=== PATIENT | female | born 1980 | race Two or more races ===

== ENCOUNTER 2019-06-11 07:54 | Emergency (ER) | payer BC ==
[~2019-06-11] VITALS: Ht 157.5 cm; Wt 86.2 kg
[2019-06-11] MEDS ORDERED: NITROGLYCERIN SUBLINGUAL 0.4 MG BOTTLE OF 25. SL PRN (08:00)
[2019-06-11 08:27] LABS: BASO % 0 % (0-3); EOS # 0.1 x10^3/uL (0.0-0.7); EOS % 1 % (0-3); HEMATOCRIT 39.8 % (36.0-47.0); HEMOGLOBIN 13.4 g/dL (12.0-15.5); LYMPH # 2.4 x10^3/uL (1.0-4.8); LYMPH % 22 % (24-48); MEAN CORPUSCULAR HEMOGLOBIN 31 pg (25-35); MEAN CORPUSCULAR HGB CONC 34 g/dL (31-37); MEAN CORPUSCULAR VOLUME 91 fL (79-100); MONO # 0.8 x10^3/uL (0.0-1.1); MONO % 7 % (0-9); NEUT # 7.7 x10^3/uL (1.8-7.7); NEUT % 70 % (31-73); PLATELET COUNT 374 x10^3/uL (140-400); RED BLOOD COUNT 4.37 x10^6/uL (3.50-5.40); RED CELL DISTRIBUTION WIDTH 13.5 % (11.5-14.5); WHITE BLOOD COUNT 10.9 x10^3/uL (4.0-11.0)
[2019-06-11 08:29] LABS: BILIRUBIN,URINE NEGATIVE (NEG); CLARITY,URINE CLEAR; COLOR,URINE YELLOW; NITRITE,URINE NEGATIVE (NEG); PROTEIN,URINE NEGATIVE (NEG-TRACE); UROBILINOGEN,URINE 0.2 mg/dL (0.2 mg/dL)
[2019-06-11] MEDS ORDERED: ASPIRIN CHEWABLE 81 MG TABLET. PO ONE (08:30)
--- NOTE | 2019-06-11 08:30 | PHYS DOC ---
Past Medical History Past Medical History: Anxiety Past Surgical History: Tubal ligation Alcohol Use: Occasionally Drug Use: Marijuana Adult General Chief Complaint Chief Complaint: CHEST PAIN HPI HPI 39-year-old female presents to the emergency department with complaints of chest pain, sharp, pressure like sensation appreciated to the chest, reproducible. She states has been ongoing however more intense today. She states movements as well as big breaths make this worse. She denies any cough, nausea, vomiting, diap horesis. Patient has no history of coronary artery disease, she does smoke marijuana occasionally. Review of Systems Review of Systems Constitutional: Denies fever or chills [] Eyes: Denies change in visual acuity, redness, or eye pain [] HENT: Denies nasal congestion or sore throat [] Respiratory: Denies cough, + sob Cardiovascular: No additional information not addressed in HPI [] GI: Denies abdominal pain, nausea, vomiting, bloody stools or diarrhea [] Musculoskeletal: Denies back pain or joint pain [] Integument: Denies rash or skin lesions [] Neurologic: Denies headache, focal weakness or sensory changes [] All other systems were reviewed and found to be within normal limits, except as documented in this note. Current Medications Current Medications Current Medications Medications (Trade) Dose Ordered Sig/Martín Start Time Stop Time Status Last Admin Dose Admin Aspirin (Children'S Aspirin) 324 mg 1X ONCE 06/11/19 08:30 06/11/19 08:31 DC 06/11/19 08:28 324 MG Info (CONTRAST GIVEN -- Rx MONITORING) 1 each PRN DAILY PRN 06/11/19 09:45 06/13/19 09:44 Iohexol (Omnipaque 350 Mg/ml) 100 ml 1X ONCE 06/11/19 10:00 06/11/19 10:01 DC 06/11/19 10:00 100 ML Ketorolac Tromethamine (Toradol 30mg Vial) 30 mg 1X ONCE 06/11/19 09:00 06/11/19 09:01 DC 06/11/19 08:41 30 MG Nitroglycerin (Nitrostat) 0.4 mg PRN Q5MIN PRN 06/11/19 08:00 06/12/19 07:59 06/11/19 08:30 0.4 MG Allergies Allergies Allergies Coded Allergies Type Severity Reaction Last Updated Verified No Known Drug Allergies 06/11/19 No Physical Exam Physical Exam Constitutional: Well developed, well nourished, no acute distress, non-toxic appearance. [] HENT: Normocephalic, atraumatic, bilateral external ears normal, oropharynx moist, no oral exudates, nose normal. [] Eyes: PERRLA, EOMI, conjunctiva normal, no discharge. [] Cardiovascular:Heart rate regular rhythm, no murmur [] Lungs & Thorax: Bilateral breath sounds clear to auscultation [] Abdomen: Bowel sounds normal, soft, no tenderness, no masses, no pulsatile masses. [] Skin: Warm, dry, no erythema, no rash. [] Extremities: No tenderness, no edema. [] Neurologic: Alert and oriented X 3, no focal deficits noted. [] Psychologic: Affect normal, judgement normal, mood normal. [] Current Patient Data Vital Signs Vital Signs Date Time Temp Pulse Resp B/P (MAP) Pulse Ox O2 Delivery O2 Flow Rate FiO2 06/11/19 09:55 90 132/72 (92) 06/11/19 09:21 97 Room Air 06/11/19 08:37 16 06/11/19 07:56 98.2 98.2 Lab Values Laboratory Tests Test 06/11/19 08:11 06/11/19 08:19 White Blood Count 10.9 x10^3/uL (4.0-11.0) Red Blood Count 4.37 x10^6/uL (3.50-5.40) Hemoglobin 13.4 g/dL (12.0-15.5) Hematocrit 39.8 % (36.0-47.0) Mean Corpuscular Volume 91 fL (79-100) Mean Corpuscular Hemoglobin 31 pg (25-35) Mean Corpuscular Hemoglobin Concent 34 g/dL (31-37) Red Cell Distribution Width 13.5 % (11.5-14.5) Platelet Count 374 x10^3/uL (140-400) Neutrophils (%) (Auto) 70 % (31-73) Lymphocytes (%) (Auto) 22 % (24-48) L Monocytes (%) (Auto) 7 % (0-9) Eosinophils (%) (Auto) 1 % (0-3) Basophils (%) (Auto) 0 % (0-3) Neutrophils # (Auto) 7.7 x10^3/uL (1.8-7.7) Lymphocytes # (Auto) 2.4 x10^3/uL (1.0-4.8) Monocytes # (Auto) 0.8 x10^3/uL (0.0-1.1) Eosinophils # (Auto) 0.1 x10^3/uL (0.0-0.7) Basophils # (Auto) 0.0 x10^3/uL (0.0-0.2) D-Dimer (Linda) 0.92 ug/mlFEU (0.00-0.50) H Sodium Level 143 mmol/L (136-145) Potassium Level 4.0 mmol/L (3.5-5.1) Chloride Level 107 mmol/L (98-107) Carbon Dioxide Level 24 mmol/L (21-32) Anion Gap 12 (6-14) Blood Urea Nitrogen 12 mg/dL (7-20) Creatinine 0.7 mg/dL (0.6-1.0) Estimated GFR (Cockcroft-Gault) 92.2 BUN/Creatinine Ratio 17 (6-20) Glucose Level 103 mg/dL (70-99) H Calcium Level 8.9 mg/dL (8.5-10.1) Magnesium Level 2.0 mg/dL (1.8-2.4) Total Bilirubin 0.2 mg/dL (0.2-1.0) Aspartate Amino Transferase (AST) 15 U/L (15-37) Alanine Aminotransferase (ALT) 22 U/L (14-59) Alkaline Phosphatase 70 U/L (46-116) Troponin I Quantitative < 0.017 ng/mL (0.000-0.055) Total Protein 7.9 g/dL (6.4-8.2) Albumin 3.6 g/dL (3.4-5.0) Albumin/Globulin Ratio 0.8 (1.0-1.7) L Lipase 115 U/L (73-393) Urine Collection Type Unknown Urine Color Yellow Urine Clarity Clear Urine pH 7.0 Urine Specific [place] 1.015 Urine Protein Negative mg/dL (NEG-TRACE) Urine Glucose (UA) Negative mg/dL (NEG) Urine Ketones (Stick) Negative mg/dL (NEG) Urine Blood Negative (NEG) Urine Nitrite Negative (NEG) Urine Bilirubin Negative (NEG) Urine Urobilinogen Dipstick 0.2 mg/dL (0.2 mg/dL) Urine Leukocyte Esterase Negative (NEG) Urine RBC 0 /HPF (0-2) Urine WBC Occ /HPF (0-4) Urine Squamous Epithelial Cells Many /LPF Urine Bacteria Moderate /HPF (0-FEW) Urine Mucus Slight /LPF Laboratory Tests 06/11/19 08:11 Laboratory Tests 06/11/19 08:11 EKG EKG EKG reveals sinus rhythm, heart rate 93, no evidence of acute ST elevation MA appreciated.[] Interpretation Time: Interpretation time 0 817 Radiology/Procedures Radiology/Procedures [facility] [address] [place] [address] IMAGING REPORT Signed PATIENT: TORO CLEVELAND ACCOUNT: [id number] : 1980 LOCATION: ER AGE: 39 SEX: F EXAM STATUS: REG ER ORD. PHYSICIAN: ADALID HILL MD REASON: chest pain X1 week. hx of bronchitis PROCEDURE: PORTABLE CHEST 1V PORTABLE CHEST 1V History: Chest pain for one week, history of bronchitis Comparison: None. Findings: Single view of the chest is submitted. There is no lobar infiltrate, pleural fluid, pneumothorax. Heart size is within normal limits. There is minimal linear opacity at the left lung base likely mild atelectasis. Impression: 1. There is mild likely atelectasis of the left lung base. Electronically signed by: Donnie Ellis MD (06/11/2019 8:38 AM) [facility] DICTATED and SIGNED BY: DONNIE ELLIS MD DATE: 06/11/19 0838 [] [facility] [address] [place], [place] [id number] IMAGING REPORT Signed PATIENT: TORO CLEVELAND ACCOUNT: [id number] : 1980 LOCATION: ER AGE: 39 SEX: F EXAM STATUS: REG ER ORD. PHYSICIAN: ADALID HILL MD REASON: elevated ddimer, chest tightness/SOB PROCEDURE: CT ANGIOGRAPHY CHEST Chest CTA History: Elevated d-dimer, shortness of breath, chest tightness Technique: After bolus of intravenous contrast, CT imaging was performed of the chest. Multiplanar reconstruction images to include MIP reconstruction images are submitted. Exposure: One or more of the following individualized dose reduction techniques were utilized for this examination: 1. Automated exposure control 2. Adjustment of the mA and/or kV according to patient size 3. Use of iterative reconstruction technique. Comparison: None Findings: Contrast bolus in the pulmonary arteries is suboptimal, no pulmonary embolism identified of the main pulmonary arteries. However small emboli of the left lower lobe best seen coronal image 41 and of the left upper lobe as seen on coronal image 39 are difficult to entirely exclude. There is also some relative decreased contrast opacification of the right upper lobe branches proximally although probably related to artifact created by adjacent contrast bolus. There is no lobar infiltrate, pleural or pericardial effusion, pneumothorax. Minimal lingular density is likely atelectasis. Major airways are patent. There is probable hepatic steatosis. There is small nonspecific left adrenal nodule about 0.6 cm. Thoracic aortic caliber is within normal limits without intraluminal flap. Impression: 1. Exam is limited as stated, no central pulmonary embolism identified, difficult to exclude small more peripheral emboli as stated. 2. There is small nonspecific left adrenal nodule. Findings discussed with ADALID HILL at 06/11/2019 10:15 AM. FOR INTERNAL CODING PURPOSES RESULT CODE: (C) Course & Med Decision Making Course & Med Decision Making Pertinent Labs and Imaging studies reviewed. (See chart for details) [] 39-year-old female presents to the emergency department with complaints of chest pain, sharp, pressure like sensation appreciated to the chest, reproducible. She states has been ongoing however more intense today. She states movements as well as big breaths make this worse. She denies any cough, nausea, vomiting, diaphoresis. Patient has no history of coronary artery disease, she does smoke marijuana occasionally. labs/imaging reviewed - ASA 324mg po/Toradol 30mg IV EKG reviewed CXR with mild atelectasis no acute consolidation Trop negative x 1 set Ddimer elevated - CTA show no large burden PE however cannot rule out peripheral Given findings will start xarelto starter pack and continue DC home and follow up as outpatient with PCP in [address] findings with patient/family at bedside Floyd Disclaimer Floyd Disclaimer This electronic medical record was generated, in whole or in part, using a voice recognition dictation system. Departure Departure Impression: Primary Impression: Chest pain Additional Impression: Pulmonary emboli Disposition: HOME, SELF-CARE Condition: STABLE Referrals: UNKNOWN PCP NAME (PCP) Patient Instructions: Chest Pain (Nonspecific), Pulmonary Embolus Additional Instructions: Recommend follow up with PCP 3 - 5 days Return to the ER with worsening symptoms, intractable pain, fever, altered mental status Tylenol as needed for pain Xarelto rx provided for blood thinning medication Tramadol as needed prn Scripts Tramadol Hcl (TRAMADOL HCL) 50 Mg Tablet 50 MG PO Q6HRS PRN for PAIN for 5 Days, #20 TAB Prov: ADALID HILL MD 06/11/19 Rivaroxaban (XARELTO) 20 Mg Tablet 1 TAB PO DAILY for 30 Days, #30 TAB 0 Refills with food Prov: ADALID HILL MD 06/11/19 Rivaroxaban (XARELTO) 15 Mg Tablet 1 TAB PO BID for 21 Days, #42 TAB 0 Refills Prov: ADALID HILL MD 06/11/19 Problem Qualifiers Primary Impression: Chest pain Chest pain type: intercostal pain Qualified Codes: R07.82 - Intercostal pain Additional Impression: Pulmonary emboli Pulmonary embolism type: unspecified Chronicity: unspecified Acute cor pulmonale presence: without acute cor pulmonale Qualified Codes: I26.99 - Other pulmonary embolism without acute cor pulmonale ADALID HILL MD Jun 11, 2019 08:30
[2019-06-11 08:37] LABS: RBC,URINE 0 /HPF (0-2); SQUAMOUS EPITHELIAL CELL,UR MANY /LPF; WBC,URINE OCC /HPF (0-4)
[2019-06-11 08:38] LABS: BACTERIA,URINE MODERATE /HPF (0-FEW)
--- NOTE | 2019-06-11 08:41 | RAD ---
PORTABLE CHEST 1V History: Chest pain for one week, history of bronchitis Comparison: None. Findings: Single view of the chest is submitted. There is no lobar infiltrate, pleural fluid, pneumothorax. Heart size is within normal limits. There is minimal linear opacity at the left lung base likely mild atelectasis. Impression: 1. There is mild likely atelectasis of the left lung base. Electronically signed by: Steve Pal MD (06/11/2019 8:38 AM) [facility]
[2019-06-11 08:45] LABS: CALCIUM 8.9 mg/dL (8.5-10.1); CREATININE 0.7 mg/dL (0.6-1.0); GFR 92.2
[2019-06-11 08:54] LABS: ALBUMIN 3.6 g/dL (3.4-5.0); ALBUMIN/GLOBULIN RATIO 0.8 (1.0-1.7); TOTAL BILIRUBIN 0.2 mg/dL (0.2-1.0); TOTAL PROTEIN 7.9 g/dL (6.4-8.2)
[2019-06-11] MEDS ORDERED: KETOROLAC 30 MG/ML VIAL. IV ONE (09:00)
[2019-06-11] MEDS ORDERED: CONTRAST GIVEN. MC PRN (09:45)
[2019-06-11] MEDS ORDERED: IOHEXOL 350 MG/ML 100 ML VIAL. IV ONE (10:00)
--- NOTE | 2019-06-11 10:19 | RAD ---
Chest CTA History: Elevated d-dimer, shortness of breath, chest tightness Technique: After bolus of intravenous contrast, CT imaging was performed of the chest. Multiplanar reconstruction images to include MIP reconstruction images are submitted. Exposure: One or more of the following individualized dose reduction techniques were utilized for this examination: 1. Automated exposure control 2. Adjustment of the mA and/or kV according to patient size 3. Use of iterative reconstruction technique. Comparison: None Findings: Contrast bolus in the pulmonary arteries is suboptimal, no pulmonary embolism identified of the main pulmonary arteries. However small emboli of the left lower lobe best seen coronal image 41 and of the left upper lobe as seen on coronal image 39 are difficult to entirely exclude. There is also some relative decreased contrast opacification of the right upper lobe branches proximally although probably related to artifact created by adjacent contrast bolus. There is no lobar infiltrate, pleural or pericardial effusion, pneumothorax. Minimal lingular density is likely atelectasis. Major airways are patent. There is probable hepatic steatosis. There is small nonspecific left adrenal nodule about 0.6 cm. Thoracic aortic caliber is within normal limits without intraluminal flap. Impression: 1. Exam is limited as stated, no central pulmonary embolism identified, difficult to exclude small more peripheral emboli as stated. 2. There is small nonspecific left adrenal nodule. Findings discussed with ADALID HILL at 06/11/2019 10:15 AM. FOR INTERNAL CODING PURPOSES RESULT CODE: (C) Electronically signed by: Steve Pal MD (06/11/2019 10:16 AM) [facility]
[2019-06-11] MEDS ORDERED: RIVA15TA PO (10:31)
[2019-06-11] MEDS ORDERED: RIVA20TA2 PO (10:31)
[2019-06-11] MEDS ORDERED: TRAM50TA PO (10:31)
[2019-06-11 10:33] VITALS: BP 130/78
--- NOTE | 2019-06-12 11:48 | EKG ---
[facility] [address] [place] [address] Test Date: 2019-06-11 Test Time: 08:04:19 Pat Name: TORO CLEVELAND Department: Room: Gender: F [employer] Diving: : 1980 Requested By: ADALID HILL Order Number: [id number] Reading MD: Measurements Intervals [place] Rate: 93 P: 101 CT: 128 QRS: 8 QRSD: 80 T: 17 QT: 348 QTc: 435 Interpretive Statements SINUS RHYTHM QRS(T) CONTOUR ABNORMALITY CONSIDER ANTEROSEPTAL MYOCARDIAL DAMAGE POSSIBLY ABNORMAL ECG RI6.01 No previous ECG available for comparison
== END 2019-06-11 10:36 | disposition home or self-care (01) ==
LOC: ER 07:54
DX: I26.99 Other pulmonary embolism without acute cor pulmonale (principal); R07.89 Other chest pain; F41.9 Anxiety disorder, unspecified; Z98.51 Tubal ligation status
CPT/HCPCS: 36415; 71045; 71275; 80053; 81001; 83690; 83735; 84484; 85025; 85379; 87086; 93005; 96374; 99285; J1885; Q9967